=== PATIENT | female | born 1995 | race Asian ===

== ENCOUNTER 2018-11-02 15:45 | Emergency (ER) | payer SELFPAY ==
[~2018-11-02] VITALS: Ht 188 cm; Wt 99.0 kg
[2018-11-02] MEDS ORDERED: DIPHENHYDRAMINE 25MG CAPSULE PO ONE (17:45)
[2018-11-02] MEDS ORDERED: FAMOTIDINE 20MG TABLET PO ONE (17:45)
[2018-11-02 18:36] VITALS: BP 110/74
== END 2018-11-02 18:37 | disposition home or self-care (01) ==
LOC: ER 15:45
DX: T80.62XA Other serum reaction due to vaccination, initial encounter (principal); L27.1 Localized skin eruption due to drugs and medicaments taken internally; T50.Z95A Adverse effect of other vaccines and biological substances, initial encounter; Y92.214 College as the place of occurrence of the external cause
CPT/HCPCS: 81025; 99283; Q0163

== ENCOUNTER 2022-02-17 20:08 | Inpatient (IN) | payer MEDICAID ==
[~2022-02-17] VITALS: Ht 190.5 cm; Wt 102.6 kg
[2022-02-18 01:08] LABS: BASOPHILS % 0.5 % (0.0-2.0); HEMATOCRIT. 41.2 % (36.0-48.0); HEMOGLOBIN. 13.4 g/dL (12.0-16.0); LYMPHOCYTES % 13.2 % (20.0-50.0); MEAN CORPUSCULAR HEMOGLOBIN 29.2 pg (28.0-32.0); MEAN CORPUSCULAR VOLUME 89.8 fL (81.0-99.0); MEAN PLATELET VOLUME 7.9 fl (7.4-10.4); MONOCYTES % 4.7 % (2.0-8.0); NEUTROPHILS % 81.6 % (40.0-76.0); PLATELET 361 x1000/uL (130-400); RED BLOOD CELL COUNT 4.59 mill/uL (4.2-5.4); RED CELL DISTRIBUTION WIDTH 13.6 % (11.6-14.6)
[2022-02-18 01:51] LABS: CHLORIDE 109 mEq/L (98-107)
[2022-02-18 02:01] LABS: ETHANOL BLOOD < 10 mg/dL
[2022-02-18 02:06] LABS: CLARITY URINE CLEAR (CLEAR); COLOR URINE YELLOW (YELLOW); KETONES URINE TRACE (NEGATIVE); LEUKOCYTE ESTERASE URINE NEGATIVE (NEGATIVE); NITRITE URINE NEGATIVE (NEGATIVE); OCCULT BLOOD URINE NEGATIVE (NEGATIVE); PH URINE 5.5 (4.5-8.0); PROTEIN URINE 1+ (NEGATIVE); SPECIFIC GRAVITY URINE 1.029 (1.005-1.030); UROBILINOGEN URINE 0.2 E.U./dL (0.2-1.0)
[2022-02-18 02:33] LABS: *AMPHETAMINES SCREEN URINE NEGATIVE (NEGATIVE); *BARBITURATES SCREEN URINE NEGATIVE (NEGATIVE); *BENZODIAZEPINES SCREEN URINE NEGATIVE (NEGATIVE); *COCAINE SCREEN URINE NEGATIVE (NEGATIVE); CANNABINOID URINE SCREEN NEGATIVE (NEGATIVE); METHADONE URINE SCREEN NEGATIVE (NEGATIVE); PHENCYCLIDINE URINE SCREEN NEGATIVE (NEGATIVE)
[2022-02-18 02:35] LABS: OPIATES URINE SCREEN PRESUMTIVE POSITIVE (NEGATIVE)
[2022-02-18] MEDS ORDERED: ACETYLCYSTEINE 200MG/ML 20% VIAL 30ML (INJ) IV ONE (03:00)
[2022-02-18] MEDS ORDERED: DEXT 5% IV NR (04:30)
[2022-02-18] MEDS ORDERED: WATER IV NR ×2 (04:30→08:30)
[2022-02-18] MEDS ORDERED: ACETYLCYSTEINE IV NR ×2 (04:30→08:30)
[2022-02-18] MEDS ORDERED: ONDANSETRON 4MG ODT PO ONE (05:30)
[2022-02-18] MEDS ORDERED: DEXTROSE 5% IV NR (08:30)
[2022-02-18] MEDS: CEPHALEXIN 250MG CAPSULE PO SCH (09:00)
[2022-02-18 10:06] LABS: CHLORIDE 104 mEq/L (98-107)
[2022-02-18] MEDS ORDERED: ZOLPIDEM TARTRATE 5MG TABLET PO PRN (20:00)
[2022-02-18] MEDS ORDERED: POTASSIUM CHLORIDE 20MEQ TABLET SR PO NR (20:00)
[2022-02-19] MEDS ORDERED: POTASSIUM CHLORIDE 20MEQ TABLET SR PO NR ×2 (04:15→11:00)
[2022-02-19 05:46] VITALS: BP 118/76
[2022-02-19 08:00] VITALS: BP 111/68
[2022-02-19] MEDS: CEPHALEXIN 250MG CAPSULE PO SCH ×2 (09:55→17:32)
[2022-02-19 10:16] LABS: BASOPHILS % 0.5 % (0.0-2.0); EOSINOPHILS % 2.1 % (0.0-5.0); HEMATOCRIT. 38.9 % (36.0-48.0); HEMOGLOBIN. 12.9 g/dL (12.0-16.0); LYMPHOCYTES % 15.9 % (20.0-50.0); MEAN CORPUSCULAR HEMOGLOBIN 29.6 pg (28.0-32.0); MEAN CORPUSCULAR VOLUME 89.4 fL (81.0-99.0); MEAN PLATELET VOLUME 8.2 fl (7.4-10.4); MONOCYTES % 5.6 % (2.0-8.0); NEUTROPHILS % 75.9 % (40.0-76.0); PLATELET 301 x1000/uL (130-400); RED BLOOD CELL COUNT 4.35 mill/uL (4.2-5.4); RED CELL DISTRIBUTION WIDTH 13.8 % (11.6-14.6)
[2022-02-19 10:36] LABS: CHLORIDE 106 mEq/L (98-107)
[2022-02-19 10:43] LABS: PHOSPHORUS 2.5 mg/dL (2.5-4.9)
[2022-02-19 12:00] VITALS: BP 109/70
[2022-02-19] MEDS: LEVOFLOXACIN 500MG TABLET PO SCH (12:43)
[2022-02-19] MEDS ORDERED: MAGNESIUM 1 G PREMIX 100 ML IV NR (13:00)
[2022-02-19] MEDS: SERTRALINE HCL 25MG TABLET PO SCH ×2 (14:10→14:11)
[2022-02-19 16:00] VITALS: BP 143/86
[2022-02-19 17:04] LABS: INR 1.2; PROTHROMBIN TIME 12.5 sec (9.6-11.0)
[2022-02-19] MEDS ORDERED: [UNRECOGNIZED DRUG - REMARK] IV ONE (18:15)
[2022-02-19 20:00] VITALS: BP 130/80
[2022-02-19] MEDS ORDERED: DEXT 5% IV NR (20:00)
[2022-02-19] MEDS ORDERED: WATER IV NR (20:00)
[2022-02-19] MEDS ORDERED: ACETYLCYSTEINE IV NR (20:00)
[2022-02-20] VITALS: BP 126/66
[2022-02-20] MEDS ORDERED: WATER IV SCH ×2
[2022-02-20] MEDS ORDERED: DEXTROSE 5% IV SCH ×2
[2022-02-20] MEDS ORDERED: ACETYLCYSTEINE IV SCH ×2
[2022-02-20 05:43] LABS: CHLORIDE 104 mEq/L (98-107)
[2022-02-20 08:00] VITALS: BP 118/75
[2022-02-20] MEDS: LEVOFLOXACIN 500MG TABLET PO SCH (10:00)
[2022-02-20] MEDS: CEPHALEXIN 250MG CAPSULE PO SCH ×2 (10:00→17:26)
[2022-02-20 12:00] VITALS: BP 113/70
[2022-02-20 16:00] VITALS: BP 122/78
[2022-02-20 20:00] VITALS: BP 124/82
[2022-02-21] VITALS: BP 122/68
[2022-02-21 04:00] VITALS: BP 104/71
[2022-02-21 08:00] VITALS: BP 88/53
[2022-02-21] MEDS: CEPHALEXIN 250MG CAPSULE PO SCH ×2 (08:37→16:56)
[2022-02-21] MEDS: SERTRALINE HCL 25MG TABLET PO SCH (08:38)
[2022-02-21] MEDS: LEVOFLOXACIN 500MG TABLET PO SCH (11:28)
[2022-02-21 12:00] VITALS: BP 100/55
[2022-02-21 13:27] LABS: CHLORIDE 102 mEq/L (98-107)
[2022-02-21] MEDS ORDERED: POTASSIUM CHLORIDE 20MEQ TABLET SR PO NR (13:45)
[2022-02-21 16:00] VITALS: BP 114/75
[2022-02-21 20:00] VITALS: BP 133/88
[2022-02-22] VITALS: BP 129/78
[2022-02-22 06:22] VITALS: BP 115/79
[2022-02-22 07:39] LABS: CHLORIDE 103 mEq/L (98-107)
[2022-02-22 08:00] VITALS: BP 111/82
[2022-02-22] MEDS: SERTRALINE HCL 25MG TABLET PO SCH (09:00)
[2022-02-22] MEDS: CEPHALEXIN 250MG CAPSULE PO SCH ×2 (09:42→17:31)
[2022-02-22] MEDS ORDERED: POTASSIUM CHLORIDE 20MEQ TABLET SR PO NR (10:45)
[2022-02-22] MEDS: LEVOFLOXACIN 500MG TABLET PO SCH (11:43)
[2022-02-22 12:00] VITALS: BP 116/81
[2022-02-22 16:00] VITALS: BP 118/80
[2022-02-22 20:00] VITALS: BP 112/68
[2022-02-23] VITALS: BP 107/68
[2022-02-23 02:56] LABS: UCG SCREEN NEGATIVE
[2022-02-23 04:00] VITALS: BP 122/56
[2022-02-23 08:00] VITALS: BP 101/81
[2022-02-23] MEDS: SERTRALINE HCL 25MG TABLET PO SCH (09:00)
[2022-02-23 12:00] VITALS: BP 119/73
[2022-02-23] MEDS: LEVOFLOXACIN 500MG TABLET PO SCH (12:33)
[2022-02-23 12:42] VITALS: BP 140/95
== END 2022-02-23 15:35 | disposition home or self-care (01) | DRG 817 ==
LOC: ER 20:08 → EDBEDREQ 02-18 07:47 → EDBEDREQTM 02-18 09:39 → EDBEDREQ 02-18 09:39 → 8WST 02-18 09:39 → ENRESERV 02-18 23:43
PROVIDERS: ADMIT Internal Medicine; ATTEND Internal Medicine
DX: T39.1X2A Poisoning by 4-Aminophenol derivatives, intentional self-harm, initial encounter (principal); E87.6 Hypokalemia; J45.909 Unspecified asthma, uncomplicated; N39.0 Urinary tract infection, site not specified; Z20.822 Contact with and (suspected) exposure to COVID-19; R74.01 Elevation of levels of liver transaminase levels; Z59.02 Unsheltered homelessness; Y92.89 Other specified places as the place of occurrence of the external cause
CPT/HCPCS: 36415; 80053; 80076; 80305; 80307; 80320; 80329; 81001; 81025; 83735; 84100; 84450; 84460; 85025; 93005; 96365; 96366; 96368; 99291; C9803; J0132; J3475; J7060; J7070; U0003; U0005; G0480